=== PATIENT | male | born 1970 | race Caucasian/White ===

== ENCOUNTER → 2017-04-04 | Outpatient (CLI) | payer OTHER ==
[~2017-04-04] MED LIST: KEFLEX500 MG PO; LORTAB 5/500 501 TAB PO; NAPROSYN500 MG PO; NO HOME MEDICATIONS; NORCO 325 MG-51 TAB PO; PEN-VEE K500 MG PO
== END ==
LOC: COL.RAD 15:59
DX: Z53.8 Procedure and treatment not carried out for other reasons (principal)

== ENCOUNTER → 2017-04-12 | Outpatient (CLI) | payer SELFPAY | LOC: COL.RAD 13:49 | DX: M25.862 Other specified joint disorders, left knee (principal); M76.52 Patellar tendinitis, left knee; M17.11 Unilateral primary osteoarthritis, right knee ==

== ENCOUNTER 2017-08-15 19:15 | Emergency (ER) | payer BC ==
[~2017-08-15] VITALS: Ht 165.1 cm; Wt 88.6 kg
[~2017-08-15 19:15] MED LIST changes: -NORCO 325 MG-51 TAB PO; -PEN-VEE K500 MG PO
[2017-08-15 19:17] VITALS: BP 182/104; PULSE 92; TEMP 98.7
[2017-08-15] MEDS ORDERED: NORCO 325 MG-51 TAB PO (21:11)
[2017-08-15] MEDS ORDERED: PEN-VEE K500 MG PO (21:11)
== END 2017-08-15 21:32 | disposition home or self-care (01) ==
LOC: COL.ER 19:15
DX: K02.9 Dental caries, unspecified (principal); R68.84 Jaw pain